=== PATIENT | female | born 1980 | race Caucasian/White ===

== ENCOUNTER → 2016-07-21 | Outpatient (CLI) | payer BC ==
--- NOTE | 2016-07-21 16:15 | RADIOLOGY REPORT PS360 ---
CHEST(2 VIEWS-NOT PORTABLE) HISTORY: Central chest pain, tobacco use, smoker ATYPICAL CP COMPARISON: 07/18/2016 FINDINGS: The cardiomediastinal silhouette and pulmonary vascularity are within normal limits. Patchy density once again noted in the right lung base somewhat more prominent suspicious for pneumonitis. Calcified nodes are present in the right hilum. On the lateral view there is a nodular density overlying the T9 vertebral body. This measures 15 mm. No acute bony abnormalities. IMPRESSION: 1. Patchy infiltrate in the right lower lobe. 2. 15 mm nodular density overlies the T9 vertebral body posterolaterally to a granuloma. CT may confirm calcification within the lesion. We at least recommend short-term follow-up radiographically if CT is not performed to confirm stability
== END ==
LOC: RAD 13:09 → LAB 13:09
DX: R07.9 Chest pain, unspecified (principal); R42 Dizziness and giddiness